=== PATIENT | female | born 1980 | race Caucasian/White ===

== ENCOUNTER 2018-04-15 17:46 | Inpatient (IN) | payer OTHER ==
[~2018-04-15] VITALS: Ht 165.1 cm; Wt 113.4 kg
--- NOTE | ~2018-04-15 | EEG ---
[facility] [place] [address] ELECTROENCEPHALOGRAM Name: MARIO REYNA Room #: 420-P [facility] IN M.R.#: [id number] Admission: 04/15/18 Attend Phys: Dani Lafleur MD Discharge: Date of : 78 Report #: [id number] THIS REPORT FOR: //name// CC: Dani Martin DATE OF SERVICE: 04/16/2018 This patient is being evaluated for the possibility of seizure. EEG was done by placing the electrode by standard 10-20 system of electrode placement. Both referential and sequential montages were used for recording. Background activity in this patient's EEG is about 11 Hz and 40 microvolt with a symmetrical activity. The patient became drowsy that is associated with bilateral slowing and vertex sharp waves. Photic stimulation is unremarkable. Throughout the record, no active epileptiform activity was noticed. IMPRESSION: This patient's electroencephalogram is unremarkable. Thank you very much for this referral. <ELECTRONICALLY SIGNED> By: Indra Linton MD 04/17/18 0837 [id number] Indra Linton MD /nt
--- NOTE | ~2018-04-15 | EKG ---
[address] [address] ELECTROCARDIOGRAM REPORT Name: MARIO REYNA Room #: 420-P [facility] IN .R.#: [id number] Admission: 04/15/18 Attend Phys: aDni Lafleur MD Discharge: Date of : 78 Report #: [id number] THIS REPORT FOR: //name// [facility] ED Test Date: 2018-04-15 Test Time: 19:49:49 Pat Name: MARIO REYNA Department: Room: [facility] Gender: F Change Booth Attendant: SYBIL : 1980 Requested By: Sara Evans Order Number: [id number] MD: Mich Dumont Measurements Intervals [place] Rate: 90 P: 48 ID: 112 QRS: 63 QRSD: 87 T: -7 QT: 366 QTc: 448 Interpretive Statements Sinus rhythm Borderline short ID interval Borderline T wave abnormalities No previous ECG available for comparison Electronically Signed On 04-16-2018 11:05:52 CDT by Mich Dumont [email or web address] <ELECTRONICALLY SIGNED> By: Mich Dumont MD 04/16/18 1105 1949 194 MD KYARA Mi
--- NOTE | ~2018-04-15 | HC ---
[facility] [address] CONSULTATION Name: AXEL,MARIO D Room #: 420-P ADM IN M.R.#: [id number] Admission: 04/15/18 Attend Phys: Dani Lafleur MD Discharge: Date of : 78 Report #: [id number] THIS REPORT FOR: //name// CC: Dani Martin DATE OF SERVICE: 04/16/2018 HISTORY OF PRESENT ILLNESS: This is a 38-year-old female patient who was seen by me in the [facility] in September. I reviewed those records. The patient had a very unusual presentation that time and it was not sure if all her symptoms were organic. However, her MRI was abnormal. I could not explain her symptom and I recommended that she be transferred to some tertiary care center for further workup and management. From the notes, it looks like they tried to transfer her to or [facility] and either they were unsuccessful or the patient wanted to do it as an outpatient. In any event, she never got transferred. She was also supposed to see them as an outpatient, but she indicated she did not see anybody as an outpatient in a tertiary care center. I am not sure why she came to [facility] this time. This patient was also concerned with the pain medication, which was stopped that time by the admitting doctor. She is having multiple symptoms. I do not know how much she has recovered from her prior episode she said she got the vision back, but she still has some visual symptoms like she sees double and sometimes she does not feel good. She is able to ambulate, but her ambulation is progressively becoming worse. She indicates her cognition is not very good. Overall, she improved, but she started deteriorating again. History is not very clear in that regard, but she definitely is weak and according to her is falling down. REVIEW OF SYSTEMS: Positive for some symptoms like question of fibromyalgia. She says she has a seizure disorder. She said she is having seizure pretty frequently now. She had an abnormal MRI in the past and we talked about PRES, but all the symptoms could not be explained on the basis of that. She claims she is allergic to multiple things. This was her relevant 14-point review of systems. She does have stress. She used to be on gabapentin at one time, but is not on it now. PAST MEDICAL HISTORY: Positive for admission to [facility] and those records were reviewed and we do not know what the clear diagnosis was at that time. FAMILY HISTORY: Unremarkable. SOCIAL HISTORY: She said she does not drink alcohol. PHYSICAL EXAMINATION: NEUROLOGY: She is alert. She is responsive. She can follow simple commands. [facility] [address] [place] [address] CONSULTATION Name: MARIO REYNA Room #: 420-P [facility] IN M.R.#: [id number] Admission: 04/15/18 Attend Phys: Dani Lafleur MD Discharge: Date of : 78 Report #: [id number] She remembered me from [facility]. Cranial nerve examination today, she indicated she can see and she can move her eyes in multiple directions, but has some nonspecific symptoms. She moves all 4 extremities. Her position sense is intact. Reflexes are symmetrical. There is no meningeal sign in this patient. I could not look at the fundus. GENERAL: She is moderately built individual. VITAL SIGNS: Her blood pressure is 110/84, respirations is 16, and temperature is 97.4. LABORATORY DATA: Indicate white count being normal. IMAGING DATA: She did have a CT scan of the head, which was unremarkable. IMPRESSION: I had talked to the patient when she was in [place] and I talked to her again. I had talked to her about the limitation of our hospital and that she needs higher level of care with an epileptologist, neuro-collection systems administrator, and multiple other specialties, which we do not have. She could not be transferred the last time to tertiary care or did not want to go and she did not follow up with any tertiary care facility as recommended. She came to this hospital instead of going to emergency room of a tertiary care hospital and I discussed with her. It is going to be a problem now because we may not be able to transfer and we cannot transfer to somebody accept her. It would have been better if she had presented to one of the tertiary care emergency room. I discussed her options with her. I had discussed all of that in the past also with her when she was in [facility]. She does have organic problem and she also has psychological overlay making it very difficult to determine the etiology of her symptoms. Her MRI was abnormal last time, but we could not determine what the cause of that abnormality is and that is why I had recommended that she goes to tertiary care center. That is still my recommendation. I will try to get an MRI of the brain today and depending upon that, she may need an MRI of the spine also, especially if there is a suspicion for demyelinating disorder and especially because she is complaining of walking difficulty. That will not explain her seizure, which she says she is having frequently. I will get an electroencephalogram done, but then she may have to be transferred to some other hospital for a video monitored electroencephalogram if the present electroencephalogram is unremarkable. All of it was discussed with the patient and I had discussed with emergency room physician last night. More than 50 minutes of time was spent taking care of this patient today and majority of that time was spent counseling the patient and coordinating her [facility] [address] [place] [address] CONSULTATION Name: AMRIO REYNA Room #: 420-P ADM IN [facility]#: [id number] Admission: 04/15/18 Attend Phys: Dani Lafleur MD Discharge: Date of : 78 Report #: [id number] Daniels will take over the service in the morning and will be following this patient with you. <ELECTRONICALLY SIGNED> By: Indra Linton MD 04/17/18 0836 0827 2313 Indra Linton MD /nt
[~2018-04-15 17:46] MED LIST: ACYCLOVIR 200200 MG PO; AMOXICILLIN 50500 MG PO; ARMODAFINIL200 MG PO; ASMANEX HFA13 G1 INH; B12INJ IM; BACTROBAN22 GM TP; BIRTH CONTROL; BUTRANS1 EAC1; CLONAZEPAM; COZAAR 25 MG TA25 M1 PO; COZAAR 50 MG TA50 M2 PO; DULERA 100 MCG/13 GM INH; FIORINAL 50-321 EACH PO; FLEXERIL PO; HYDROCHLOROTHIA25 M2 PO; HYDROCODON-ACE1 EA12 PO; HYDROCODON-ACE1 EAC5 PO; HYDROCODON-ACE1 EAC8 PO; HYDROCODONE-AP1 EAC6 PO; IBUPROFEN 800800 M1 PO; IBUPROFEN 800800 MG PO; JUNEL FE 1-201 EACH PO; KEPPRA 500 MG500 M1 PO; LEVAQUIN 500 M500 M2 PO; LIDOCAINE1 EACH TRANSDERM; LOESTRIN FE 1-1 EACH; MORPHINE SULFAT15 M3 PO; NEURONTIN600 MG PO; NORCO 5-325 TA1 EACH PO; NORVASC2.5 MG PO; NUVIGIL; OMEPRAZOLE 20 M20 M1 PO; OSELB75 PO; OXYCODONE HCL30 MG PO; OXYCONTIN10 M1 PO; OXYCONTIN15 MG PO; PERCOCET 5-3251 EACH PO; POLYSPORIN OINT15 GM TP; PREDNISONE 10 M10 M1 PO; PRILOSEC40 MG PO; PROAIR HFA8.5 GM INH; RESTORIL30 MG PO; TRAZODONE HCL50 MG PO; TYLENOL325 MG PO; ULTRACET TABLE1 EACH PO; ULTRAM 50MG TAB50 MG PO; VALIUM5 MG PO; VISTARIL 25 MG25 M1 PO; VITAMIN D5000 UNI1 PO; ZANAFLEX4 M1; ZANAFLEX4 M1 PO; ZANAFLEX4 MG PO; ZITHROMAX250 MG NG; ZOFRAN ODT4 MG PO; ZOFRAN4 MG PO; ZOLOFT 50 MG TA50 M1 PO; [UNRECOGNIZED DRUG - OTHER]; [UNRECOGNIZED DRUG - OTHER]
[2018-04-15 19:31] VITALS: BP 114/71
[2018-04-15 19:41] LABS: URINE BILIRUBIN NEGATIVE (Negative); URINE BLOOD TRACE (Negative); URINE CLARITY CLEAR; URINE COLOR YELLOW; URINE GLUCOSE-RANDOM* NEGATIVE (Negative); URINE KETONES NEGATIVE (Negative); URINE LEUKOCYTES-REFLEX NEGATIVE (Negative); URINE NITRITE-REFLEX NEGATIVE (Negative); URINE PROTEIN (DIPSTICK) NEGATIVE (Negative); URINE UROBILINOGEN 0.2 E.U./dl (0.2-1.0)
[2018-04-15 19:55] LABS: ABSOLUTE NEUTROPHILS 4.2 thou/uL (1.4-8.2); BASOPHILS 0.8 % (0.0-2.0); EOSINOPHILS 2.3 % (0.0-3.0); HEMATOCRIT 39.6 % (37.0-47.0); HEMOGLOBIN 13.3 gm/dL (12.0-15.0); MCH 30.3 pg (26.0-34.0); MCHC 33.4 g/dL (28.0-37.0); MCV 90.5 fL (80.0-100.0); MONOCYTES 8.3 % (1.0-8.0); PLATELET COUNT 216 thou/uL (150-400); POLYS 56.6 % (36.0-66.0); RBC 4.38 mil/uL (4.20-5.00); RDW 13.2 % (10.5-14.5); WBC 7.4 thou/uL (4.0-11.0)
[2018-04-15 20:02] LABS: ANION GAP 7 mmol/L (7-16); BUN 13 mg/dL (7-18); CALCIUM 9.2 mg/dL (8.5-10.1); CHLORIDE 105 mmol/L (98-107); CO2 25 mmol/L (21-32); CREATININE 1.1 mg/dL (0.6-1.0); GLUCOSE 86 mg/dL (74-106); POTASSIUM 4.2 mmol/L (3.5-5.1); SODIUM 137 mmol/L (136-145)
[2018-04-15 20:08] LABS: ALBUMIN 3.6 g/dL (3.4-5.0); DIRECT BILIRUBIN < 0.1 mg/dL (<0.1-0.3); LIPASE 237 U/L (73-393); SGOT 12 U/L (15-37); SGPT 23 U/L (30-65); TOTAL BILIRUBIN < 0.1 mg/dL (<0.1-1.0); TOTAL PROTEIN 7.3 g/dL (6.4-8.2)
[2018-04-15 20:11] LABS: APTT 24.3 Seconds (24.5-32.8); PROTIME 9.8 Seconds (9.3-11.4)
[2018-04-15] MEDS ORDERED: NUVIGIL200 MG PO (23:30)
[2018-04-15] MEDS ORDERED: PERCOCET 10-321 EACH PO (23:30)
[2018-04-15] MEDS ORDERED: MS CONTIN15 MG PO (23:30)
[2018-04-15] MEDS ORDERED: LOESTRIN1 EAC1 PO (23:31)
[2018-04-15] MEDS ORDERED: B12INJ IM (23:32)
[2018-04-15] MEDS ORDERED: RESTORIL30 MG PO (23:32)
[2018-04-15] MEDS ORDERED: LIDODERM1 EACH TRANSDERM (23:33)
[2018-04-15 23:44] VITALS: BP 121/53
[2018-04-16 00:11] VITALS: BP 121/53
[2018-04-16] MEDS ORDERED: ZANAFLEX4 MG PO (02:01)
[2018-04-16 04:37] VITALS: BP 114/70
[2018-04-16 07:20] VITALS: BP 110/84
[2018-04-16 15:22] VITALS: BP 107/66
[2018-04-16 20:00] VITALS: BP 163/60
[2018-04-17 04:30] VITALS: BP 93/57
[2018-04-17 07:13] VITALS: BP 81/40
[2018-04-17 15:38] VITALS: BP 141/91
[2018-04-17 19:28] VITALS: BP 135/91
[2018-04-18 03:37] VITALS: BP 104/68
[2018-04-18 08:20] VITALS: BP 123/69
[2018-04-18 14:26] VITALS: BP 123/69
== END 2018-04-18 14:56 | disposition home or self-care (01) | DRG 101 ==
LOC: ER 17:46 → 4E 23:24 → EROBS 23:24 → 4E 04-16 00:11
PROVIDERS: Emergency Medicine
DX: R56.9 Unspecified convulsions (principal); M79.7 Fibromyalgia; Z79.899 Other long term (current) drug therapy; I10 Essential (primary) hypertension; K58.9 Irritable bowel syndrome, unspecified; R47.9 Unspecified speech disturbances; G43.909 Migraine, unspecified, not intractable, without status migrainosus; G89.29 Other chronic pain; Z88.8 Allergy status to other drugs, medicaments and biological substances; Z88.6 Allergy status to analgesic agent; Z88.1 Allergy status to other antibiotic agents; Z87.11 Personal history of peptic ulcer disease; Z82.49 Family history of ischemic heart disease and other diseases of the circulatory system; Z82.3 Family history of stroke; Z80.8 Family history of malignant neoplasm of other organs or systems; Z87.891 Personal history of nicotine dependence
CPT/HCPCS: 10183